=== PATIENT | female | born 1945 | race Caucasian/White ===

== ENCOUNTER 2021-11-24 19:25 | Emergency (ER) | payer OTHER, BC ==
[2021-11-24 19:43] VITALS: BP 148/77; PULSE 110; RESP 20; TEMP 99; BMI 19.9
[2021-11-24 20:12] LABS: HEMATOCRIT 35.7 % (32.4-45.2); HEMOGLOBIN 12.9 G/dL (10.7-15.3); MCH 33.5 pg (25.7-33.7); MCHC 36.2 g/dl (32.0-36.0); MEAN CELL VOLUME 92.6 fl (80-96); MEAN PLT VOLUME 8.6 fl (7.5-11.1); PLATELET COUNT 212.6 10^3/uL (134-434); RBC 3.85 10^6/uL (3.60-5.2); RDW 13.9 % (11.6-15.6); WHITE BLOOD COUNT 10.7 10^3/uL (4.0-10.8)
[2021-11-24] MEDS ORDERED: ACETAMINOPHEN 1000 MG/100 ML BAG IVPB ONE (20:13)
[2021-11-24] MEDS ORDERED: ERTAPENEM SODIUM 1 GM/50 ML PRE-DOCKED IVPB ONE (20:14)
[2021-11-24 20:20] LABS: ALBUMIN 3.9 g/dl (3.4-5.0); BILIRUBIN,TOTAL 0.6 mg/dl (0.2-1); CALCIUM 9.3 mg/dl (8.5-10); CREATININE 0.7 mg/dl (0.55-1.3); TOT PROT 7.1 g/dl (6.4-8.2)
[2021-11-24] MEDS ORDERED: ACETAMINOPHEN INJECTION 100 ML IVPB ONE (20:31)
[2021-11-24] MEDS ORDERED: ERTAPENEM SODIUM 1 GM VIAL ONE (20:31)
[2021-11-24 20:33] LABS: PLATELET ESTIMATE ADEQUATE
[2021-11-24] MEDS ORDERED: LACTATED RINGERS SOLUTION 1000 ML INFUS.BAG IV SCH (21:45)
[2021-11-24] MEDS ORDERED: LACTULOSE 20 GM/30 ML UDC (FOR ORAL USE ONLY) PO ONE (22:20)
[2021-11-24] MEDS ORDERED: LACTULOSE 20 GM/30 ML UDC (FOR ORAL USE ONLY) ONE (22:23)
== END 2021-11-24 23:06 | disposition home or self-care (01) ==
LOC: FER 19:25
PROC: 3E0333Z Introduction of Anti-inflammatory into Peripheral Vein, Percutaneous Approach (ICD-10-PCS; principal; 2021-11-24)
PROC: 3E03329 Introduction of Other Anti-infective into Peripheral Vein, Percutaneous Approach (ICD-10-PCS; 2021-11-24)
DX: R68.83 Chills (without fever) (principal); E86.0 Dehydration; K59.00 Constipation, unspecified
CPT/HCPCS: 36415; 71046-TC-FY; 74177-TC; 80053; 81003; 81015; 85025; 87040; 87086; 93005; 99285-25; C9803-CS; Q9967; U0003; U0005

== ENCOUNTER 2023-06-29 17:05 | Emergency (ER) | payer OTHER, BC ==
[2023-06-29 17:32] VITALS: BP 129/89; PULSE 89; RESP 18; TEMP 97.5; BMI 19.9
[2023-06-29] MEDS ORDERED: ACETAMINOPHEN INJECTION 100 ML IVPB ONE (18:06)
[2023-06-29] MEDS ORDERED: ONDANSETRON 4 MG/2 ML VIAL ONE (18:06)
[2023-06-29] MEDS: LACTATED RINGERS SOLUTION 1000 ML INFUS.BAG IV ONE (18:15)
[2023-06-29] MEDS: ONDANSETRON 4 MG/2 ML VIAL IVPUSH ONE (18:16)
[2023-06-29] MEDS: ACETAMINOPHEN 1000 MG/100 ML BAG IVPB ONE (18:23)
[2023-06-29 19:06] LABS: HEMOGLOBIN 12.9 G/dL (10.7-15.3); MCH 30.7 pg (25.7-33.7); MEAN CELL VOLUME 92.9 fl (80-96); MEAN PLT VOLUME 8.7 fl (7.5-11.1); RDW 14.8 % (11.6-15.6); WHITE BLOOD COUNT 6.8 10^3/uL (4.0-10.8)
[2023-06-29 19:18] LABS: ALBUMIN 4.6 g/dl (3.4-5.0); BILIRUBIN,TOTAL 0.4 mg/dl (0.2-1); POTASSIUM 3.9 mmol/L (3.5-5.1); TOT PROT 7.4 g/dl (6.4-8.2)
[2023-06-29 21:31] LABS: PLATELET ESTIMATE ADEQUATE
[2023-06-29 21:32] LABS: OVALOCYTE 1+
[2023-06-29] MEDS: MAGNESIUM CITRATE 300 ML BOTTLE PO ONE (23:23)
[2023-06-29] MEDS ORDERED: MAGNESIUM CITRATE 300 ML BOTTLE ONE (23:23)
== END 2023-06-29 23:24 | disposition home or self-care (01) ==
LOC: FER 17:05
PROC: 3E033NZ Introduction of Analgesics, Hypnotics, Sedatives into Peripheral Vein, Percutaneous Approach (ICD-10-PCS; principal; 2023-06-29)
PROC: 3E033GC Introduction of Other Therapeutic Substance into Peripheral Vein, Percutaneous Approach (ICD-10-PCS; 2023-06-29)
DX: R10.84 Generalized abdominal pain (principal); K59.00 Constipation, unspecified; R11.0 Nausea
CPT/HCPCS: 36415; 74177-TC; 80053; 81003; 83690; 84484; 85027; 87086; 99285-25; J0131; Q9967

== ENCOUNTER 2024-07-15 14:42 | Emergency (ER) | payer OTHER, BC ==
[2024-07-15 14:51] VITALS: BP 125/55; PULSE 78; RESP 17; TEMP 97.6; BMI 19.9
[2024-07-15 15:44] LABS: BASOPHILS # 0.03 x10^3/uL (0.01-0.08); EOSINOPHIL % 0.4 % (0.7-5.8); EOSINOPHILS # 0.03 x10^3/uL (0.04-0.36); HEMOGLOBIN 12.3 g/dL (11.2-15.7); MCHC 34.2 g/dl (32.2-35.5); MEAN CELL VOLUME 91.6 fl (79.4-94.8); MEAN PLT VOLUME 10.4 fl (9.4-12.3); MONOCYTE # 0.51 x10^3/uL (0.24-0.86); MONOCYTE % 6.9 % (4.7-12.5); PLATELET COUNT 250 x10^3/uL (182-369); RDW 12.7 % (12.4-16.6)
[2024-07-15] MEDS ORDERED: FAMOTIDINE 20 MG/50 ML IVPB 20 MG/50 ML MG IVPB ONE (15:50)
[2024-07-15] MEDS: SODIUM CHLORIDE 1,000 ML IV ONE (15:56)
[2024-07-15] MEDS: FAMOTIDINE 20 MG/50 ML IVPB 20 MG in PREMIX 50 IVPB ONE (15:58)
[2024-07-15 16:05] LABS: ALBUMIN 4.5 g/dl (3.4-5.0); BILIRUBIN,TOTAL 0.5 mg/dl (0.2-1); CALCIUM 9.9 mg/dl (8.5-10.1); CREATININE 0.8 mg/dl (0.6-1.3); POTASSIUM 4.3 mmol/L (3.5-5.1)
[2024-07-15 16:48] LABS: EPITHELIAL CELLS FEW /hpf
[2024-07-15] MEDS: ACETAMINOPHEN 325 MG TABLET (FP) PO ONE (17:26)
[2024-07-15] MEDS ORDERED: ACETAMINOPHEN 325 MG TABLET (FP) ONE (17:28)
== END 2024-07-15 19:42 | disposition home or self-care (01) ==
LOC: FER 14:42
PROC: 3E033GC Introduction of Other Therapeutic Substance into Peripheral Vein, Percutaneous Approach (ICD-10-PCS; principal; 2024-07-15)
DX: R10.84 Generalized abdominal pain (principal); R94.31 Abnormal electrocardiogram [ECG] [EKG]
CPT/HCPCS: 36415; 74177-TC; 80053; 81003; 81015; 83605; 83690; 84484; 85025; 93005; 99285-25; Q9967

== ENCOUNTER 2024-09-13 07:17 | Day surgery (SDC) | payer OTHER, BC ==
[2024-09-06 16:57] VITALS: BMI 19.7
[~2024-09-13 07:17] MED LIST: ONDANSETRON 4 MG/2 ML VIAL IVPUSH PRN
[2024-09-13] MEDS ORDERED: ONDANSETRON 4 MG/2 ML VIAL IVPUSH PRN (07:24)
[2024-09-13] MEDS ORDERED: IBUPROFEN 600 MG TABLET (FP) PO PRN (07:24)
[2024-09-13] MEDS ORDERED: IBUPROFEN 800 MG/8 ML IJ IVPB PRN (07:24)
[2024-09-13] MEDS ORDERED: LACTATED RINGERS SOLUTION 1,000 ML IV SCH (07:30)
[2024-09-13] MEDS ORDERED: ELECTROLYTE-148 SOLN 1,000 ML IV SCH (07:30)
[2024-09-13] MEDS ORDERED: MIDAZOLAM HCL 2 MG/2 ML SINGLE DOSE VIAL ONE (07:31)
[2024-09-13] MEDS ORDERED: PROPOFOL 20 ML ONE (07:31)
[2024-09-13] MEDS ORDERED: CLINDAMYCIN PHOSPHATE 600 MG/4 ML VIAL ONE (07:34)
[2024-09-13] MEDS: CLINDAMYCIN 600 MG PREMIX BAG IVPB ONE (07:51)
[2024-09-13] MEDS ORDERED: DEXAMETHASONE SOD PHOSPHATE 4 MG/1 ML VIAL ONE (08:11)
[2024-09-13] MEDS ORDERED: LIDOCAINE HCL/PF 2% SDV 5ML VIAL ONE (08:11)
[2024-09-13 09:31] VITALS: RESP 18
[2024-09-13 10:46] VITALS: BP 130/68; PULSE 64; TEMP 97.5
== END 2024-09-13 10:45 | disposition home or self-care (01) ==
LOC: JASU-SURG 07:17
PROVIDERS: ATTEND Obstetrics & Gynecology
PROC: 0UB98ZZ Excision of Uterus, Via Natural or Artificial Opening Endoscopic (ICD-10-PCS; principal; 2024-09-13 07:30)
DX: N84.0 Polyp of corpus uteri (principal)
CPT/HCPCS: 88305-TC; 94760